=== PATIENT | female | born 1970 | race Hispanic/Latino ===

== ENCOUNTER 2024-01-19 07:59 | Emergency (ER) | payer SELFPAY ==
[2024-01-19] MEDS ORDERED: FAMOTIDINE 20 MG TAB ONE (08:18)
[2024-01-19] MEDS ORDERED: METHYLPREDNISOLONE 125 MG INJ ONE (08:18)
[2024-01-19] MEDS ORDERED: DIPHENHYDRAMINE 50 MG/ML VIAL ONE (08:19)
--- NOTE | 2024-01-19 09:10 | EDPHYS ---
Physician Documentation [facility] Name: Maddi Burch Age: 53 yrs Sex: Female : 1970 Arrival Date: 01/19/2024 Time: 07:59 Bed 4 Private MD: ED Physician Peter Rivera HPI: 01/18 08:05 This 53 yrs old Female presents to ER via Unassigned with complaints of sb4 Allergic Reaction. 08:13 developed an itchy rash on her hands 2 days ago, unsure what from, possibly gym sb4 equipment. states the rash has slowly spread throughout her entire body and now her throat feels scratchy. she took Zyrtec once and Benadryl once. denies any chest pain or shortness of breath. no known allergies, no prior reactions. 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 - Infectious Disease History:: Denies. - Social history:: Smoking status: Patient denies any tobacco usage or history of. ROS: 08:13 Constitutional: Negative for fever, chills, and weight loss, sb4 08:13 Skin: Positive for rash, diffusely, 08:13 All other systems are negative, Exam: 08:13 Constitutional: This is a well developed, well nourished patient who is awake, alert, sb4 and in no acute distress. Head/Face: Normocephalic, atraumatic. Eyes: Extra-ocular motions intact. Periorbital areas with no swelling, redness, or edema. ENT: Mucous membranes moist. Cardiovascular: Regular rate and rhythm with a normal S1 and S2. Respiratory: Lungs have equal breath sounds bilaterally, clear to auscultation and percussion. No rales, rhonchi or wheezes noted. No increased work of breathing, no retractions or nasal flaring. 08:13 ENT: Posterior pharynx: Airway: normal, no evidence of obstruction, patent, 08:13 Skin: rash a moderate rash is noted, rash can be described as urticarial, and is diffusely located, Vital Signs: 08:13 BP 124 / 96; Pulse 71; Resp 16; Temp 98.4; Pulse Ox 100% ; Weight 65.77 kg; Height 5 ll1 ft. 4 in. ; Pain 0/10; 08:46 BP 121 / 86; Pulse 79; Resp 16; Pulse Ox 98% ; dd2 09:22 BP 120 / 66; Pulse 74; Resp 15; Pulse Ox 99% ; dd2 08:13 Body Mass Index 24.89 (65.77 kg, 162.56 cm) ll1 08:13 Pain Scale: Adult ll1 MDM: 08:04 Patient medically screened. sb4 09:08 Data reviewed: vital signs, nurses notes, and as a result, I will discharge patient. sb4 Counseling: I had a detailed discussion with the patient and/or guardian regarding the historical points, exam findings, and any diagnostic results supporting the discharge/admit diagnosis, to return to the emergency department if symptoms worsen or persist or if there are any questions or concerns that arise at home. Administered Medications: 08:28 Drug: MethylPREDNISolone Sodium Succinate IM 125 mg IM once Route: IM; Site: right dd2 ventrogluteal; 08:43 Follow up: Response: No adverse reaction dd2 08:28 Drug: Famotidine PO 20 mg PO once Route: PO; dd2 08:43 Follow up: Response: No adverse reaction dd2 08:29 Drug: diphenhydrAMINE IM 50 mg IM once Route: IM; Site: right ventrogluteal; dd2 08:43 Follow up: Response: No adverse reaction dd2 Disposition: 10:54 I was immediately available on-site in the Emergency Department for consultation in the ms3 care of the patient. Disposition Summary: 01/19/24 09:09 Discharge Ordered Notes: Location: Home sb4 Problem: new sb4 Symptoms: have improved sb4 Condition: Stable sb4 Diagnosis - Allergic urticaria sb4 Followup: sb4 - With: Emergency Department - When: As needed - Reason: Trouble breathing, Worsening of condition Discharge Instructions: - Discharge Summary Sheet sb4 - Hives sb4 Forms: - Patient Portal Instructions sb4 - Leadership Thank You Letter sb4 Prescriptions: - Pepcid 20 mg Oral Tablet - take 1 tablet ORAL route every 12 hours for 5 days; 10 tablet; Refills: 0, sb4 Product Selection Permitted - Prednisone 20 mg Oral Tablet - take 2 tablets ORAL route once daily for 5 days; 10 tablet; Refills: 0, Product sb4 Selection Permitted Signatures: Wolf Fabian RN RN ll1 Peter Rivera DO DO ms3 Sandrita Fournier PA-C PA-C sb4 CLINT THAPA RN RN dd2
--- NOTE | 2024-01-19 09:10 | ER ---
Nurse's Notes [facility] Name: Maddi Burch Age: 53 yrs Sex: Female : 1970 Arrival Date: 01/19/2024 Time: 07:59 Bed 4 Private MD: Diagnosis: Allergic urticaria Presentation: 01/18 08:13 Chief complaint: Patient states: Rash with itching started to hands while at the gym ll1 yesterday. Has has spread all over her body now. Took Benadryl last night. Coronavirus screen: Client denies travel out of the [place] in the last 14 days. At this time, the client does not indicate any symptoms associated with coronavirus-19. Ebola Screen: Patient denies travel to an Ebola-affected area in the 21 days before illness onset. Onset: The symptoms/episode began/occurred yesterday. Anaphylaxis evaluation, no signs or symptoms of anaphylaxis were noted. Initial Sepsis Screen: Does the patient meet any 2 criteria? No. Patient's initial sepsis screen is negative. Does the patient have a suspected source of infection? No. Patient's initial sepsis screen is negative. Risk Assessment: Do you want to hurt yourself or someone else? Patient reports no desire to harm self or others. Onset of symptoms was January 18, 2024. 08:13 Method Of Arrival: Ambulatory ll1 08:13 Acuity: BRIANA 4 ll1 Triage Assessment: 08:13 General: Appears distressed, Behavior is calm, cooperative, appropriate for age. Pain: ll1 Denies pain. Derm: Reports itching, rash to body. 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 - Infectious Disease History:: Denies. - Social history:: Smoking status: Patient denies any tobacco usage or history of. Screenin:46 [facility] ED Fall Risk Assessment (Adult) History of falling in the last 3 months, dd2 including since admission No falls in past 3 months (0 pts) Confusion or Disorientation No (0 pts) Intoxicated or Sedated No (0 pts) Impaired Gait No (0 pts) Mobility Assist Device Used No (0 pt) Altered Elimination No (0 pt) Score/Fall Risk Level 0 - 2 = Low Risk Oriented to surroundings, Maintained a safe environment, Hourly rounding (assess needs \T\ fall precautionary measures) done. Abuse screen: Denies threats or abuse. Nutritional screening: No deficits noted. Tuberculosis screening: No symptoms or risk factors identified. Assessment: 08:46 General: Appears comfortable, Behavior is calm, cooperative. Pain: Denies pain. Neuro: dd2 No deficits noted. Cardiovascular: No deficits noted. Respiratory: Airway is patent Respiratory effort is even, unlabored, Breath sounds are clear. GI: No deficits noted. : No deficits noted. EENT: No deficits noted. Derm: Skin is flushed, Rash noted that is itchy, red, on redness noted to face, neck, chest, trunk and navneet arms Reports itching, tingling. Musculoskeletal: No deficits noted. Vital Signs: 08:13 BP 124 / 96; Pulse 71; Resp 16; Temp 98.4; Pulse Ox 100% ; Weight 65.77 kg; Height 5 ll1 ft. 4 in. ; Pain 0/10; 08:46 BP 121 / 86; Pulse 79; Resp 16; Pulse Ox 98% ; dd2 09:22 BP 120 / 66; Pulse 74; Resp 15; Pulse Ox 99% ; dd2 08:13 Body Mass Index 24.89 (65.77 kg, 162.56 cm) ll1 08:13 Pain Scale: Adult ll1 ED Course: 08:02 Patient arrived in ED. mr 08:03 Sandrita Fournier PA-C is PHCP. sb4 08:03 Peter Rivera DO is Attending Physician. sb4 08:11 Arm band placed on Patient placed in an exam room, on a stretcher. ll1 08:15 Triage completed. ll1 08:28 CLINT THAPA, ROBERT is Primary Nurse. dd2 08:46 Patient has correct armband on for positive identification. Bed in low position. Call dd2 light in reach. Side rails up X 1. Provided Education on: call light, medications. Door closed. Warm blanket given. 08:46 No provider procedures requiring assistance completed. Patient did not have IV access dd2 during this emergency room visit. Administered Medications: 08:28 Drug: MethylPREDNISolone Sodium Succinate IM 125 mg IM once Route: IM; Site: right dd2 ventrogluteal; 08:43 Follow up: Response: No adverse reaction dd2 08:28 Drug: Famotidine PO 20 mg PO once Route: PO; dd2 08:43 Follow up: Response: No adverse reaction dd2 08:29 Drug: diphenhydrAMINE IM 50 mg IM once Route: IM; Site: right ventrogluteal; dd2 08:43 Follow up: Response: No adverse reaction dd2 Medication: 08:46 VIS not applicable for this client. dd2 Outcome: : Discharge ordered by MD. ramos 09:23 Discharged to home ambulatory, dd2 09:23 Condition: stable :23 Discharge instructions given to patient, Instructed on discharge instructions, follow up and referral plans. medication usage, Demonstrated understanding of instructions, follow-up care, medications, Prescriptions given X 2, :23 Patient left the ED. dd2 Signatures: Marcie Torres, Reg Reg mr Wolf Fabian RN RN ll1 Sandrita Fournier PA-C PASilvia sb4 CLINT THAPA RN RN dd2
[2024-01-19 09:32] VITALS: TEMP 98.4
[2024-01-19 09:43] VITALS: BP 120/66; O2SAT 99
== END 2024-01-19 09:23 | disposition home or self-care (01) ==
LOC: ER 07:59
DX: L50.0 Allergic urticaria (principal)
CPT/HCPCS: 96372; 99284; J1200; J2919